=== PATIENT | female | born 1985 | race Caucasian/White ===

== ENCOUNTER 2018-04-20 14:55 | Outpatient (RCR) | payer MEDICAID, SELFPAY ==
--- NOTE | 2018-04-17 11:48 | NT_ITS ---
NON TREATMENT NOTE: 04/17/18 Patient was a no show no call for today's scheduled appointment.
--- NOTE | 2018-04-20 15:18 | PTTR_ITS ---
DATE: 04/20/18 SUBJECTIVE: I am doing pretty much the same. My Doctor is planning on me getting an MRI pretty soon. OBJECTIVE: Manual therapy: ([id number]): Patient was placed in supine and mobilized with gentle traction through the cervical vertebrae for decompression and unloaded into cervical retraction. Patient was stretched through the levator scapulae and upper trapezius with low load long duration holds. She was then mobilized with gentle segmental lateral and PA glides up to grade III distribution of strength for actual intervertebral movement. Patient then guided through gentle sub end range PROM into all planes. Direct treatment time: 15 minutes of direct patient care.
== END 2018-05-11 23:59 | disposition home or self-care (01) ==
LOC: PT 14:55
PROVIDERS: PCP Family Medicine; Referring Provider Family Medicine; Visit Provider Family Medicine
DX: M25.511 Pain in right shoulder (principal)
CPT/HCPCS: 97140

== ENCOUNTER → 2018-05-02 08:57 | Outpatient (CLI) | payer MEDICAID, SELFPAY ==
--- NOTE | 2018-05-02 09:45 | DI.REPORT_ITS ---
SYMPTOM/DIAGNOSIS: RT SIDED NECK AND SHOULDER PAIN RADIATING IN TO RIGHT ARM. SOME NUMBNESS, SWELLING M54.2 M25.511 R20.9 MRI CERVICAL SPINE: 05/02 MRI of the cervical spine was performed according to the usual protocol. No significant bony signal abnormality seen. The visualized posterior fossa structures appear intact. The bony central spinal canal and neural foramina appear intact. Note is made of small central disc herniations at C4-5 and C5-6 with minimal associated deformity of anterior cord surface at these levels. No abnormalities seen. CONCLUSION: Small central disc herniations at C4-5 and C5-6 as described above. Minimal cord impingement anteriorly noted at these levels. No other significant findings.
== END ==
PROVIDERS: PCP Family Medicine; Visit Provider Family Medicine
DX: M54.2 Cervicalgia (principal); M25.511 Pain in right shoulder; R20.9 Unspecified disturbances of skin sensation; M50.221 Other cervical disc displacement at C4-C5 level; M50.222 Other cervical disc displacement at C5-C6 level
CPT/HCPCS: 72141

== ENCOUNTER 2018-05-21 11:02 | Outpatient (CLI) | payer MEDICAID, SELFPAY ==
--- NOTE | 2018-05-18 14:10 | DI.RAD_ITS ---
SYMPTOMS/DIAGNOSIS: RIGHT SHOULDER PAIN, M25.511 RIGHT SHOULDER: No fracture or dislocation is seen. There are no visible degenerative changes. No tendon or soft tissue calcifications are seen. IMPRESSION: Negative right shoulder.
== END 2018-05-21 11:22 ==
PROVIDERS: PCP Family Medicine; Visit Provider Family Medicine
DX: M25.511 Pain in right shoulder (principal)
CPT/HCPCS: 73030

== ENCOUNTER 2018-07-26 00:37 | Outpatient (CLI) | payer MEDICAID, SELFPAY ==
--- NOTE | 2018-07-26 11:24 | DI.MRI_ITS ---
SYMPTOM/DIAGNOSIS: RT SHOULDER PAIN M25.511 RIGHT SHOULDER MRI: 07/26/18 MRI examination of the shoulder was performed according to the usual protocol. No focal bony signal abnormality seen. The glenoid labrum appears intact as visualized on this noncontrast study. The biceps tendon is normally positioned. No rotator cuff abnormality seen. CONCLUSION: Negative right shoulder MRI.
== END 2018-07-26 00:57 ==
PROVIDERS: PCP Family Medicine; Visit Provider Family Medicine
DX: M25.511 Pain in right shoulder (principal)
CPT/HCPCS: 73221

== ENCOUNTER → 2018-08-23 | Outpatient (CLI) | payer MEDICAID, SELFPAY ==
[2018-08-23] MEDS: methylPREDNISolone ACETATE 80 MG/ML VIAL IM (09:22)
[2018-08-23] MEDS: Omnipaque 300 MG/ML 10 ML BTL IJ (09:23)
[2018-08-23] MEDS: Bupivacaine 0.5% Pres-Free 30 ML VIAL IJ (09:26)
--- NOTE | 2018-08-23 09:27 | DI.RAD_ITS ---
SYMPTOM/DIAGNOSIS: RIGHT ROTATOR CUFF TENDINITIS M75.81 RIGHT SHOULDER INJECTION: Fluoroscopy Time: 3 sec Fluoroscopy was utilized by Dr. Reyes during the performance of a right shoulder injection. Please refer to the procedure report for complete details.
--- NOTE | 2018-08-23 11:28 | W.PROCNOTE ---
Date of service: 08/23/18 Time of Service: 11:28 Procedure Note Date of procedure: 08/23/18 Procedure: Right Shoulder Injection Surgeon/Proceduralist/Physician: Dex Reyes Procedure Diagnosis: Right partial rotator cuff tear Procedure Indications: Gricelda has had persistent pain of the RIGHT shoulder. Noninvasive measures have been tried. To serve as both diagnostic and therapeutic, an injection under fluoroscopy was recommended. I had discussed the risks of the procedure and the patient elected to proceed. Procedure Description: She was greeted in the flouroscopy room. The correct side was identified and the consent was reviewed with the patient and signed. The patient was then placed in the supine position on the fluoroscopy table. The RIGHT shoulder was then prepped with Chloraprep. The anterior injection starting point was identiifed by bony landmarks and fluoroscopy. The skin and soft tissue in the tract of the injection was anesthetized with 1% Lidocaine. A spinal needle was then inserted deep into the shoulder joint at the level of the recess between the glenoid and superior humeral head. A small amount of Omnipaque solution was injected to confirm intraarticular placement. Once confirmed, the shoulder was injected with 4cc of 0.5% Bupivicaine and 80mg of Depo-Medrol. A bandaid was placed on the injection site. The patient tolerated the procedure well and noted improvement in pre-injection pain.
== END ==
PROVIDERS: PCP Family Medicine; Visit Provider Student in an Organized Health Care Education/Training Program
DX: M75.81 Other shoulder lesions, right shoulder (principal); M25.511 Pain in right shoulder
CPT/HCPCS: 20610; 77002; J1040

== ENCOUNTER 2018-11-01 13:44 | Outpatient (REF) | payer MEDICAID, SELFPAY ==
[2018-11-01 15:09] LABS: HCT 41.3 % (36.0-46.0); HGB 13.5 g/dL (12.0-15.5); Mean Corp. HGB Concentration 32.7 g/dL (32.0-36.0); Mean Corpuscular Hemoglobin 27.3 pg (27.0-33.0); Mean Corpuscular Volume 83.6 fL (80-95); Mean Platelet Volume 11.7 fL (8.0-11.0); Platelet Count 301 x1000/uL (130-400); RBC 4.94 m/cumm (4.00-5.20); RBC Distribution Width 14.9 % (11.7-14.6); White Blood Cell Count 9.67 k/cumm (4.4-10.8)
[2018-11-01 16:29] LABS: ALT 20 U/L (12-78); AST 17 U/L (15-37); Albumin 3.7 g/dL (3.4-5.0); Alkaline Phosphatase 69 U/L (46-116); Anion Gap 8.8 mmol/L (3-11); BUN 10 mg/dL (7-18); Bilirubin, Total 0.4 mg/dL (0.2-1.0); CO2 28.2 mmol/L (21.0-32.0); Chloride 104 mmol/L (98-107); Glucose 88 mg/dL (70-100); Potassium 4.4 mmol/L (3.5-5.1); Sodium 141 mmol/L (136-145); TSH (W/Ref FT4) 1.76 uIU/mL (0.358-3.74); Total Protein 7.2 g/dL (6.4-8.2)
[2018-11-01 16:40] LABS: HCG Quant, Pregnancy < 1 mIU/mL (1-3)
[2018-11-01 16:47] LABS: Lipase 103 U/L (73-393)
== END 2018-11-01 14:04 ==
LOC: NCHCN 13:44
PROVIDERS: PCP Family Medicine; Visit Provider Family Medicine
DX: R63.4 Abnormal weight loss (principal); R11.0 Nausea
CPT/HCPCS: 80053; 83690; 85027; 84443; 84702

== ENCOUNTER 2019-01-14 10:14 | Outpatient (REF) | payer MEDICAID, SELFPAY ==
[2019-01-14 13:40] LABS: HCT 38.3 % (36.0-46.0); HGB 12.4 g/dL (12.0-15.5); Mean Corp. HGB Concentration 32.4 g/dL (32.0-36.0); Mean Corpuscular Hemoglobin 27.1 pg (27.0-33.0); Mean Corpuscular Volume 83.6 fL (80-95); Mean Platelet Volume 11.5 fL (8.0-11.0); Platelet Count 279 x1000/uL (130-400); RBC 4.58 m/cumm (4.00-5.20); RBC Distribution Width 14.2 % (11.7-14.6)
[2019-01-14 14:08] LABS: TSH (W/Ref FT4) 2.54 uIU/mL (0.358-3.74)
[2019-01-14 14:37] LABS: HCG Qual (Serum) Negative
== END 2019-01-14 10:34 ==
LOC: NCHCN 10:14
PROVIDERS: PCP Family Medicine; Visit Provider Family Medicine
DX: R53.83 Other fatigue (principal); N64.4 Mastodynia
CPT/HCPCS: 85027; 84443; 84703

== ENCOUNTER 2019-01-18 02:22 | Outpatient (CLI) | payer MEDICAID, SELFPAY ==
--- NOTE | 2019-01-18 07:16 | DI.RAD_ITS ---
SYMPTOM/DIAGNOSIS: RIGHT SHOULDER ROTATOR CUFF TENDONITIS M75.81 FLUOROSCOPY 01/18/19 Fluoroscopy Time: 00.03 sec Fluoroscopy was utilized by Dr. Reyes during reported rotator cuff injection. Hard copy shows needle overlying the glenohumeral joint. An injection is noted which may be extra and/or intra-articular.
[2019-01-18] MEDS: Bupivacaine 0.5% Pres-Free 10 ML VIAL IJ (08:31)
[2019-01-18] MEDS: methylPREDNISolone ACETATE 80 MG/ML VIAL IM (08:37)
--- NOTE | 2019-01-18 12:58 | W.PROCNOTE ---
Date of service: 01/18/19 Time of Service: 08:18 Procedure Note Date of procedure: 01/18/19 Procedure: Right Shoulder Injection Surgeon/Proceduralist/Physician: Dex Reyes Procedure Diagnosis: Right partial rotator cuff tear Procedure Indications: Gricelda has had persistent pain of the RIGHT shoulder. Noninvasive measures have been tried. To serve as both diagnostic and therapeutic, an injection under fluoroscopy was recommended. I had discussed the risks of the procedure and the patient elected to proceed. Procedure Description: Gricelda was greeted in the flouroscopy room. The correct side was identified and the consent was reviewed with the patient and signed. The patient was then placed in the supine position on the fluoroscopy table. The RIGHT shoulder was then prepped with Chloraprep. The anterior injection starting point was identiifed by bony landmarks and fluoroscopy. The skin and soft tissue in the tract of the injection was anesthetized with 1% Lidocaine. A spinal needle was then inserted deep into the shoulder joint at the level of the recess between the glenoid and superior humeral head. A small amount of Omnipaque solution was injected to confirm intraarticular placement. Once confirmed, the shoulder was injected with 4cc of 0.5% Bupivicaine and 80mg of Depo-Medrol. A bandaid was placed on the injection site. The patient tolerated the procedure well and noted improvement in pre-injection pain.
== END 2019-01-18 02:42 ==
PROVIDERS: PCP Family Medicine; Visit Provider Student in an Organized Health Care Education/Training Program
DX: M75.81 Other shoulder lesions, right shoulder (principal); M25.511 Pain in right shoulder
CPT/HCPCS: 20610; 77002; J1040

== ENCOUNTER 2019-01-31 10:25 | Outpatient (REF) | payer MEDICAID, SELFPAY ==
[2019-01-31 20:46] LABS: Ferritin 64 ng/mL (8-388); Folate 6.3 ng/mL (8.6-20.0); Vitamin B12 321 pg/mL (193-986)
== END 2019-01-31 10:45 ==
LOC: NCHCN 10:25
PROVIDERS: PCP Family Medicine; Visit Provider Family Medicine
DX: R53.83 Other fatigue (principal); R20.2 Paresthesia of skin
CPT/HCPCS: 82607; 82728; 82746

== ENCOUNTER 2019-04-11 08:27 | Outpatient (REF) | payer MEDICAID, SELFPAY ==
[2019-04-11 14:22] LABS: Folate 17.3 ng/mL (8.6-20.0); Vitamin B12 310 pg/mL (193-986)
== END 2019-04-11 08:47 ==
LOC: NCHCN 08:27
PROVIDERS: PCP Family Medicine; Visit Provider Family Medicine
DX: R53.83 Other fatigue (principal)
CPT/HCPCS: 82607; 82746

== ENCOUNTER 2020-07-15 16:25 | Outpatient (REF) | payer MEDICAID, SELFPAY ==
[2020-07-19 23:50] LABS: Patient Race White; SARS-CoV-2 RNA Undetected (Undetected); SARS-CoV-2 Specimen Source Nasal
== END 2020-07-15 16:45 ==
LOC: NCHCN 16:25
PROVIDERS: PCP Family Medicine; Visit Provider Nurse Practitioner Family
DX: R05 Cough (principal)
CPT/HCPCS: U0003

== ENCOUNTER 2021-04-14 09:23 | Emergency (ER) | payer MEDICAID, SELFPAY ==
[2021-04-14 09:25] VITALS: BP 146/71; PULSE 82; TEMP 36.8; O2SAT 100
--- NOTE | 2021-04-14 09:38 | ED.GENADUL_ITS ---
Discharge Plan Disposition Patient Disposition: HOME Condition: Good Discharge Details Clinical Impression: Rash Primary Care Provider: Gisselle Floyd ED Provider: Tracie Winters Home Meds and New Rx's Prescriptions: New cephalexin 500 mg capsule 500 mg PO Q6H 7 Days Qty: 28 RF: 0 Discharge Instructions Instructions: Acute Rash (ED) Additional Instructions: Warm compresses Ibuprofen 600 mg every 8 hours with food Take antibiotic as prescribed until completed Recheck in 1 week with your primary care physician and with persistent rash/lesions, I recommend you have reevaluation and possible imaging at the discretion of your doctor Should you have spreading redness, fever, worsening pain, please return to the emergency room Medical Decision Making Considerations include abscess, insect bite, cellulitis, mass Patient was-Keflex for 7 days, warm compresses Recheck in 7 days and possible imaging at the discretion of provider at that time Return precautions discussed patient expressed understanding, discharged home stable condition Medical Records Medical records reviewed: Yes I reviewed the patient's medical records. HPI General Mode of arrival: ambulatory . Date/Time Provider Initiated Documentation: 04/14/21 09:38 . Limitations to Documentation: no limitations . Information obtained by: patient . HPI Narrative: This 36-year-old female presents with rash to left forearm. Patient states that the rash has been spre ading and now has some redness. She denies known bite, injury. This is been constant since onset, 2 days prior to arrival. Denies any difficulty swallowing, new medications, or any additional complaints at this time. Denies fever or chills. Related Data Home Medications Medication Instructions Recorded Confirmed cephalexin 500 mg PO Q6H 7 Days #28 cap 04/14/21 Previous Rx's Medication Instructions Recorded cephalexin 500 mg PO Q6H 7 Days #28 cap 04/14/21 Allergies Allergy/AdvReac Type Severity Reaction Status Date / Time No Known Allergies Allergy Unverified 04/14/21 09:32 General Stated Complaint: RashLesion NIC: 5 Review of Systems Narrative: Review of systems negative x3 aside from where indicated in HPI PFSH Medical History (Updated 04/14/21 @ 09:41 by CORBIN Owusu) History of depression no current meds Hypothyroidism Migraine Surgical History section times 3 History of endometrial ablation 2015 Ligation of fallopian tube Family History paternal aunt Personal history of malignant neoplasm Breast CA Social History Smoking/Tobacco Use Status: Current every day Tobacco Type: cigarettes Smoking packs per day: 1 Smoking cigarettes per day: 20.0 Smoking risk assessment performed?: Yes Alcohol Intake: current Alcohol Intake frequency: holidays/special occasions only Drug use: Never Substance use type: does not use Household members: family Number of Children: 4 current occupation: Cook Do you feel safe at home: Yes Do you feel safe in your relationship?: Yes Additional Social history: 3 Biological children. 1 adopted. Exam Extrem Elbow/forearm/wrist images: 1. She has a small lump palpated, approximately 2 to 3 mm, mild surrounding swelling and approximately 3 inches of pink discoloration, mild tenderness, no ecchymosis, distal pulses intact, no crepitus Course Vital Signs Vital signs: Vital Signs Temperature 36.8 C 04/14/21 09:25 Pulse 82 04/14/21 09:25 Blood Pressure 146/71 H 04/14/21 09:25 Pulse Oximetry 100 04/14/21 09:25 Temperature 36.8 C 04/14/21 09:25 Temperature Source Temporal Artery Scan 04/14/21 09:25 Pulse 82 04/14/21 09:25 Respiratory Effort Non-Labored 04/14/21 09:30 Blood Pressure 146/71 H 04/14/21 09:25 Blood Pressure Position Sitting 04/14/21 09:25 Pulse Oximetry 100 04/14/21 09:25 Oxygen Delivery Method Room Air 04/14/21 09:25 Oxygen Flow Rate 0 04/14/21 09:25 Pain Level 2 04/14/21 09:25
== END 2021-04-14 10:01 | disposition home or self-care (01) ==
PROVIDERS: Emergency Provider Physician Assistant; PCP Family Medicine
DX: R21 Rash and other nonspecific skin eruption (principal)
CPT/HCPCS: 99283

== ENCOUNTER 2021-09-16 08:51 | Outpatient (REF) | payer MEDICAID, SELFPAY ==
[2021-09-16 15:28] LABS: HCT 41.8 % (36.0-46.0); HGB 13.3 g/dL (11.2-15.7); MCHC 31.8 % (32.0-36.0); MPV 11.6 fL (8.0-11.0); Platelet Count 299 10^3/uL (130-400); RBC 4.92 10^6/uL (3.93-5.22); RDW 13.7 % (11.7-14.6); RDW-SD 42.6 fL; WBC 7.72 10^3/uL (4.4-10.8)
[2021-09-16 16:41] LABS: Folate 7.1 ng/mL (8.6-20.0); TSH (W/Ref FT4) 1.98 uIU/mL (0.36-3.74); Vitamin B12 232 pg/mL (193-986)
[2021-09-17 10:05] LABS: HIV-1/2 Ag & Ab Screen Negative (Negative)
[2021-09-17 11:09] LABS: Hepatitis C Ab w Rflx HCV PCR Negative (Negative)
== END 2021-09-16 08:52 | disposition home or self-care (01) ==
LOC: NCHCN 08:51
PROVIDERS: PCP Family Medicine; Visit Provider Family Medicine
DX: D52.9 Folate deficiency anemia, unspecified (principal); G56.01 Carpal tunnel syndrome, right upper limb; R20.2 Paresthesia of skin; F41.9 Anxiety disorder, unspecified; Z11.4 Encounter for screening for human immunodeficiency virus [HIV]; Z11.59 Encounter for screening for other viral diseases
CPT/HCPCS: 85027; 86803; 87389; 82607; 82746; 84443

== ENCOUNTER 2021-09-21 01:18 | Outpatient (CLI) | payer MEDICAID, SELFPAY ==
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
== END 2021-09-21 01:38 ==
PROVIDERS: PCP Family Medicine; Visit Provider Family Medicine
DX: R20.2 Paresthesia of skin (principal); M50.221 Other cervical disc displacement at C4-C5 level
CPT/HCPCS: 72141

== ENCOUNTER 2021-12-31 11:18 | Outpatient (REF) | payer MEDICAID, SELFPAY ==
[2021-12-31 15:03] LABS: Hemoglobin A1C 5.5 % (<5.7)
[2021-12-31 15:08] LABS: Folate > 20.0 ng/mL (8.6-20.0); Vitamin B12 371 pg/mL (193-986)
[2022-01-03 12:42] LABS: IgA 138 mg/dL (85-499); Interpretation (See Note); Tissue Transglutaminase IgA <1.2 U/mL (<4.0)
== END 2021-12-31 11:19 | disposition home or self-care (01) ==
LOC: NCHCN 11:18
PROVIDERS: PCP Family Medicine; Visit Provider Family Medicine
DX: D52.9 Folate deficiency anemia, unspecified (principal); E53.8 Deficiency of other specified B group vitamins; E66.9 Obesity, unspecified; Z13.1 Encounter for screening for diabetes mellitus; Z00.00 Encounter for general adult medical examination without abnormal findings
CPT/HCPCS: 82784; 83516; 82607; 82746; 83036

== ENCOUNTER 2022-03-04 15:37 | Outpatient (REF) | payer MEDICAID, SELFPAY ==
--- NOTE | 2022-03-04 15:00 | PAPFT_PTH ---
PATIENT: Gricelda Hennessy LOC: [facility]#:[id number] AGE/SX: 37/F ROOM: RE03/04/[address]: Gisselle Floyd : 1985 BED: DIS: 03/04/2022 SPEC #: [id number] RECD: 03/07/22 13:16 STATUS: MIUGELANGEL REPoli #: [id number] KRISTY: 03/04/22 15:[address]: Gisselle Floyd DEPT: [facility] Cytology RECD BY: Tracie Varela Tissues: 1 - CX/ENDOCX FOR PAP SMEARS Procedures: PAP THIN PREP/UVM Screening HPV DNA PROBE Comments: [id number]
== END 2022-03-04 15:38 | disposition home or self-care (01) ==
LOC: NCHCN 15:37
PROVIDERS: PCP Family Medicine; Visit Provider Family Medicine
DX: Z12.4 Encounter for screening for malignant neoplasm of cervix (principal); Z11.51 Encounter for screening for human papillomavirus (HPV)
CPT/HCPCS: 88142; 87624